=== PATIENT | female | born 1975 | race Caucasian/White ===

== ENCOUNTER 2018-04-27 14:44 | Inpatient (IN) | payer MEDICAID, OTHER | END 2018-05-01 10:40 | disposition home or self-care (01) | LOC: ER 14:44 → ED HOLD 19:38 → SUR 3N 22:53 | DX: A41.9 Sepsis, unspecified organism (principal); K57.20 Diverticulitis of large intestine with perforation and abscess without bleeding; E87.6 Hypokalemia; Z72.0 Tobacco use ==

== ENCOUNTER 2018-07-01 08:19 | Day surgery (SDC) | payer MEDICAID, OTHER ==
[~2018-07-01] VITALS: Ht 167.6 cm; Wt 71.4 kg
[~2018-07-01 08:19] MED LIST: NO HOME MEDS
[2018-07-01 08:30] VITALS: BP 112/84
[2018-07-01] MEDS ORDERED: LIDOcaine Viscous 15ml cup ONE (08:41)
[2018-07-01] MEDS ORDERED: MIDAZolam 5mg/5ml vial ONE (08:41)
[2018-07-01] MEDS ORDERED: fentaNYL/PF 50MCG/1 ML 2ML syringe ONE (08:41)
[2018-07-01 10:56] VITALS: BP 110/65
[2018-07-01 11:06] VITALS: BP 106/73
[2018-07-01 11:16] VITALS: BP 91/56
[2018-07-01 11:26] VITALS: BP 98/52
== END 2018-07-01 11:37 | disposition home or self-care (01) ==
LOC: GI LAB 08:19
PROVIDERS: ATTEND Internal Medicine Gastroenterology
DX: K57.30 Diverticulosis of large intestine without perforation or abscess without bleeding (principal)
CPT/HCPCS: 45378; 99152; 99153; J2250; J3010; J7030; A4620

== ENCOUNTER 2018-12-22 04:27 | Emergency (ER) | payer MEDICAID ==
[~2018-12-22] VITALS: Ht 165.1 cm; Wt 71.8 kg
[2018-12-22 05:05] LABS: CLARITY,URINE CLEAR (Clear); COLOR,URINE YELLOW (Yellow); GLUCOSE, URINE NEGATIVE (Neg); KETONES,URINE NEGATIVE (Neg); LEUKOCYTE ESTERASE ,URINE NEGATIVE (Neg); NITRITES, URINE NEGATIVE (Neg); OCCULT BLOOD,URINE LARGE (Neg); PROTEIN,URINE NEGATIVE (Neg); UROBILINOGEN,URINE 0.2 E.U/dL (0.2-1.0)
[2018-12-22 05:09] LABS: UA COLLECTION TYPE CLN CATCH MIDSTREAM
[2018-12-22 05:10] LABS: BACTERIA,URINE FEW /HPF (Neg); SQUAMOUS EPITHELIAL CELL,UR MODERATE /LPF (FEW); WBC,URINE 0-4 /HPF (0-4)
[2018-12-22 05:32] LABS: BASOPHILS # (AUTO) 0.1 X10'3 (0-0.2); BASOPHILS % (AUTO) 0.7 % (0-1); EOSINOPHILS # (AUTO) 0.1 X10'3 (0-0.9); EOSINOPHILS % (AUTO) 0.7 % (0-6); HEMATOCRIT 41.5 % (35.0-45.0); HEMOGLOBIN 14.2 g/dl (12.0-16.0); LYMPHOCYTES # (AUTO) 1.6 X10'3 (1.1-4.8); LYMPHOCYTES % (AUTO) 10.7 % (21-51); MEAN CORPUSCULAR HEMOGLOBIN 32.1 PG (27.0-31.0); MEAN CORPUSCULAR HGB CONC 34.1 g/dL (33.0-36.5); MEAN CORPUSCULAR VOLUME 94.1 FL (78-98); MEAN PLATELET VOLUME 7.4 FL (7.4-10.4); MONOCYTES # (AUTO) 0.9 X10'3 (0-0.9); MONOCYTES % (AUTO) 6.2 % (2-12); NEUTROPHILS # (AUTO) 12.2 X10'3 (1.8-7.7); NEUTROPHILS % (AUTO) 81.7 % (42-75); PLATELET COUNT 350 X10'3 (140-440); RED BLOOD COUNT 4.41 X10'6 (4.20-5.60); RED CELL DISTRIBUTION WIDTH 13.3 % (11.5-14.5)
[2018-12-22 05:34] LABS: ALANINE AMINOTRANSFERASE 30 U/L (12-78); ALBUMIN 3.4 G/DL (3.4-5.0); ALBUMIN/GLOBULIN RATIO 0.9 (1.1-1.5); ALKALINE PHOSPHATASE 74 IU/L (46-116); ANION GAP 10 (8-16); ASPARTATE AMINO TRANSFERASE 20 U/L (10-37); BILIRUBIN,TOTAL 0.7 MG/DL (0.1-1.0); BLOOD UREA NITROGEN 4 MG/DL (7-18); BUN/CREATININE RATIO 5.8 (6.6-38.0); CALCIUM 8.4 MG/DL (8.5-10.1); CHLORIDE 103 MMOL/L (99-107); CREATININE 0.69 MG/DL (0.40-0.90); GLUCOSE 107 MG/DL (70-104); LIPASE 108 U/L (73-393); POTASSIUM 3.4 MMOL/L (3.5-5.1); SODIUM 138 MMOL/L (135-145); TOTAL CARBON DIOXIDE 24.6 MMOL/L (24-32); TOTAL PROTEIN 7.3 G/DL (6.4-8.2); eGFR > 90 ML/MIN
[2018-12-22] MEDS ORDERED: ketorolac trometh. 30mg/ml inj. IV ONE (05:40)
[2018-12-22] MEDS ORDERED: ondansetron/PF 4mg/2ml inj IV ONE (06:10)
[2018-12-22] MEDS ORDERED: ciprofloxacin 250mg tablet PO ONE (06:10)
[2018-12-22] MEDS ORDERED: HYDROcodone/acetaminophen 5mg/325mg tablet PO ONE (06:10)
[2018-12-22] MEDS ORDERED: metroNIDAZOLE 500mg tablet PO ONE (06:10)
[2018-12-22] MEDS ORDERED: CIPR-230 PO (06:12)
[2018-12-22] MEDS ORDERED: METR-159 PO (06:12)
[2018-12-22] MEDS ORDERED: HYDR-3965 PO (06:13)
[2018-12-22 06:38] VITALS: BP 118/70
== END 2018-12-22 06:42 | disposition home or self-care (01) ==
LOC: ER 04:28
DX: K57.92 Diverticulitis of intestine, part unspecified, without perforation or abscess without bleeding (principal); Z98.890 Other specified postprocedural states; Z88.0 Allergy status to penicillin; Z79.899 Other long term (current) drug therapy
CPT/HCPCS: 36415; 80053; 81001; 83690; 85025; 96374; 96375; 99284; J1885; J2405; J3490

== ENCOUNTER 2019-04-04 09:06 | Emergency (ER) | payer MEDICAID ==
[~2019-04-04] VITALS: Ht 167.6 cm; Wt 68.6 kg
[2019-04-04 10:12] LABS: BASOPHILS % (AUTO) 0.1 % (0-1); EOSINOPHILS % (AUTO) 0.3 % (0-6); HEMATOCRIT 42.9 % (35.0-45.0); HEMOGLOBIN 14.7 g/dl (12.0-16.0); LYMPHOCYTES # (AUTO) 0.4 X10'3 (1.1-4.8); LYMPHOCYTES % (AUTO) 4.6 % (21-51); MEAN CORPUSCULAR HEMOGLOBIN 31.5 PG (27.0-31.0); MEAN CORPUSCULAR HGB CONC 34.3 g/dL (33.0-36.5); MEAN CORPUSCULAR VOLUME 91.8 FL (78-98); MEAN PLATELET VOLUME 7.1 FL (7.4-10.4); MONOCYTES # (AUTO) 0.1 X10'3 (0-0.9); MONOCYTES % (AUTO) 0.8 % (2-12); NEUTROPHILS # (AUTO) 7.3 X10'3 (1.8-7.7); NEUTROPHILS % (AUTO) 94.2 % (42-75); PLATELET COUNT 300 X10'3 (140-440); RED BLOOD COUNT 4.67 X10'6 (4.20-5.60); RED CELL DISTRIBUTION WIDTH 13.5 % (11.5-14.5); WHITE BLOOD COUNT 7.8 X10'3 (4.5-11.0)
[2019-04-04] MEDS ORDERED: normal saline 1000ML IV soln IVB ONE (10:15)
[2019-04-04] MEDS ORDERED: ketorolac tromethamine 15mg/ml inj. IV ONE (10:15)
[2019-04-04 10:25] LABS: ALANINE AMINOTRANSFERASE 79 U/L (12-78); ALBUMIN 3.4 G/DL (3.4-5.0); ALBUMIN/GLOBULIN RATIO 0.9 (1.1-1.5); ALKALINE PHOSPHATASE 110 IU/L (46-116); ANION GAP 11 (8-16); ASPARTATE AMINO TRANSFERASE 56 U/L (10-37); BILIRUBIN,TOTAL 0.4 MG/DL (0.1-1.0); BLOOD UREA NITROGEN 8 MG/DL (7-18); BUN/CREATININE RATIO 9.8 (6.6-38.0); CALCIUM 8.6 MG/DL (8.5-10.1); CHLORIDE 100 MMOL/L (99-107); CREATININE 0.82 MG/DL (0.40-0.90); GLUCOSE 104 MG/DL (70-104); LIPASE 101 U/L (73-393); POTASSIUM 3.5 MMOL/L (3.5-5.1); SODIUM 137 MMOL/L (135-145); TOTAL CARBON DIOXIDE 26.2 MMOL/L (24-32); TOTAL PROTEIN 7.1 G/DL (6.4-8.2); eGFR 76 ML/MIN
[2019-04-04 10:37] LABS: CLARITY,URINE CLEAR (Clear); COLOR,URINE STRAW (Yellow); GLUCOSE, URINE NEGATIVE (Neg); KETONES,URINE NEGATIVE (Neg); LEUKOCYTE ESTERASE ,URINE NEGATIVE (Neg); NITRITES, URINE NEGATIVE (Neg); OCCULT BLOOD,URINE SMALL (Neg); PH,URINE 5.5 (4.8-8.0); PROTEIN,URINE NEGATIVE (Neg); UROBILINOGEN,URINE 0.2 E.U/dL (0.2-1.0)
[2019-04-04 10:38] LABS: UA COLLECTION TYPE CLN CATCH MIDSTREAM; URINE HCG NEGATIVE (NEG)
[2019-04-04 10:42] LABS: BACTERIA,URINE FEW /HPF (Neg); MUCUS STRANDS NONE SEEN /LPF (Neg); RBC,URINE 0-2 /HPF (0-2); SQUAMOUS EPITHELIAL CELL,UR FEW /LPF (FEW); WBC,URINE 0-4 /HPF (0-4)
--- NOTE | 2019-04-04 11:00 | NUR ---
NERY Ramirez at bedside speaking with patient.
[2019-04-04] MEDS ORDERED: pantoprazole 40mg Tablet.DR PO STA (11:06)
[2019-04-04] MEDS ORDERED: mag hydrox/Alum hydrox/simeth 30ml oral suspension PO ONE (11:10)
[2019-04-04] MEDS ORDERED: dicyclomine 10 MG capsule PO ONE (11:10)
[2019-04-04] MEDS ORDERED: MAG355OR18 PO (11:57)
[2019-04-04] MEDS ORDERED: DICY10CA88 PO (11:57)
[2019-04-04] MEDS ORDERED: PANT20TA3 PO (11:57)
[2019-04-04 12:08] VITALS: BP 114/65
[2019-04-05] MEDS ORDERED: DICY10CA88 PO (11:44)
[2019-04-05] MEDS ORDERED: MAG355OR18 PO (11:44)
[2019-04-05] MEDS ORDERED: PANT40TA4 PO (11:45)
== END 2019-04-04 12:10 | disposition home or self-care (01) ==
LOC: ER 09:06
DX: R10.13 Epigastric pain (principal); R11.2 Nausea with vomiting, unspecified; R10.84 Generalized abdominal pain; F17.299 Nicotine dependence, other tobacco product, with unspecified nicotine-induced disorders; Z98.890 Other specified postprocedural states; Z88.1 Allergy status to other antibiotic agents; Z79.899 Other long term (current) drug therapy
CPT/HCPCS: 36415; 80053; 81001; 81025; 83690; 85025; 96361; 96374; 99283; 99406; J1885; J7030

== ENCOUNTER 2019-04-05 06:41 | Inpatient (IN) | payer MEDICAID ==
[~2019-04-05] VITALS: Ht 167.6 cm; Wt 80.0 kg
[~2019-04-05 06:41] MED LIST changes: +DICY10CA88 PO; +MAG355OR18 PO; +PANT20TA3 PO
[2019-04-05] MEDS ORDERED: normal saline 1000ml 1,000 ML IV ONE ×2 (07:21→08:38)
[2019-04-05] MEDS ORDERED: normal saline 1000ML IV soln IVB ONE (07:25)
[2019-04-05] MEDS ORDERED: morphine 4 MG/ML inj SYRINge IV ONE (07:30)
[2019-04-05] MEDS ORDERED: metoclopramide 5 mg/ml inj IV ONE (07:35)
[2019-04-05 07:42] LABS: BASOPHILS % (AUTO) 0.2 % (0-1); EOSINOPHILS # (AUTO) 0.1 X10'3 (0-0.9); EOSINOPHILS % (AUTO) 0.5 % (0-6); HEMATOCRIT 40.1 % (35.0-45.0); HEMOGLOBIN 13.6 g/dl (12.0-16.0); LYMPHOCYTES # (AUTO) 0.5 X10'3 (1.1-4.8); LYMPHOCYTES % (AUTO) 4.6 % (21-51); MEAN CORPUSCULAR HEMOGLOBIN 30.9 PG (27.0-31.0); MEAN PLATELET VOLUME 7.1 FL (7.4-10.4); MONOCYTES # (AUTO) 0.2 X10'3 (0-0.9); NEUTROPHILS # (AUTO) 10.7 X10'3 (1.8-7.7); NEUTROPHILS % (AUTO) 92.7 % (42-75); PLATELET COUNT 290 X10'3 (140-440); RED CELL DISTRIBUTION WIDTH 13.7 % (11.5-14.5); WHITE BLOOD COUNT 11.6 X10'3 (4.5-11.0)
[2019-04-05] MEDS ORDERED: iohexol 300mg/ml 100ml inj. ONE (07:49)
[2019-04-05] MEDS ORDERED: metroNIDAZOLE-Flagyl 500mg/NS 100 ML IV STA (08:36)
[2019-04-05] MEDS ORDERED: levoFLOXACIN-Levaquin 500mg/D5 100 ML IV ONE (08:40)
[2019-04-05] MEDS ORDERED: HYDROcodone/acetaminophen 5mg/325mg tablet PO PRN (09:45)
[2019-04-05] MEDS ORDERED: mag hydrox/Alum hydrox/simeth 30ml oral suspension PO PRN (09:45)
[2019-04-05] MEDS ORDERED: ondansetron/PF 4mg/2ml inj IV PRN (09:45)
[2019-04-05] MEDS ORDERED: morphine 2 MG/ML inj. syringe IV PRN ×2 (09:45)
[2019-04-05] MEDS ORDERED: acetaminophen 325mg tablet PO PRN ×2 (09:45)
[2019-04-05] MEDS: normal saline 1000ml 1,000 ML IV SCH ×2 (09:45→19:45)
[2019-04-05] MEDS ORDERED: magnesium hydroxide 30ml (MOM) UD suspension PO PRN (09:45)
[2019-04-05] MEDS ORDERED: MAG355OR18 PO (11:44)
[2019-04-05] MEDS ORDERED: DICY10CA88 PO (11:44)
[2019-04-05] MEDS ORDERED: PANT40TA4 PO (11:45)
[2019-04-05] MEDS: HYDROcodone/acetaminophen 10/325mg tab PO PRN ×3 (11:53→19:20)
[2019-04-05 15:18] VITALS: BP 111/63
[2019-04-05] MEDS: metroNIDAZOLE-Flagyl 500mg/NS 100 ML IV SCH (15:45)
[2019-04-05 16:14] LABS: ALBUMIN 2.7 G/DL (3.4-5.0); ANION GAP 8 (8-16); BLOOD UREA NITROGEN 3 MG/DL (7-18); CALCIUM 8.1 MG/DL (8.5-10.1); CHLORIDE 107 MMOL/L (99-107); GLUCOSE 101 MG/DL (70-104); POTASSIUM 3.5 MMOL/L (3.5-5.1); SODIUM 141 MMOL/L (135-145); TOTAL CARBON DIOXIDE 25.7 MMOL/L (24-32); eGFR > 90 ML/MIN
--- NOTE | 2019-04-05 18:30 | NUR ---
Patient in room [facility]. I have received report from VIDAL and had the opportunity to ask questions and assume patient care.
--- NOTE | 2019-04-05 18:30 | NUR ---
ASSUMED CARE OF PT WITH MACHELLE Jackson
--- NOTE | 2019-04-05 18:30 | NUR ---
Patient in room [facility]. I have received report from Madelin CARTY and had the opportunity to ask questions and assume patient care.
[2019-04-05 19:00] VITALS: BP 109/67
[2019-04-05] MEDS: nicotine 21mg patch - 24 hr TD SCH (19:19)
[2019-04-05] MEDS: lactobacillus rhamnosus 10,000 MMU CELLS/CAPSULE PO SCH (21:11)
[2019-04-05 23:00] VITALS: BP 102/68
[2019-04-06] MEDS: metroNIDAZOLE-Flagyl 500mg/NS 100 ML IV SCH ×2 (00:05→07:27)
[2019-04-06] MEDS: normal saline 1000ml 1,000 ML IV SCH (03:20)
[2019-04-06] MEDS: HYDROcodone/acetaminophen 10/325mg tab PO PRN ×2 (03:21→07:29)
[2019-04-06 06:12] LABS: ALBUMIN 2.5 G/DL (3.4-5.0); ANION GAP 9 (8-16); BASOPHILS % (AUTO) 0.1 % (0-1); BLOOD UREA NITROGEN 3 MG/DL (7-18); BUN/CREATININE RATIO 5.6 (6.6-38.0); CHLORIDE 108 MMOL/L (99-107); CREATININE 0.54 MG/DL (0.40-0.90); EOSINOPHILS # (AUTO) 0.3 X10'3 (0-0.9); EOSINOPHILS % (AUTO) 2.3 % (0-6); GLUCOSE 102 MG/DL (70-104); HEMOGLOBIN 11.9 g/dl (12.0-16.0); LYMPHOCYTES # (AUTO) 1.3 X10'3 (1.1-4.8); LYMPHOCYTES % (AUTO) 10.6 % (21-51); MEAN CORPUSCULAR HEMOGLOBIN 31.2 PG (27.0-31.0); MEAN CORPUSCULAR HGB CONC 34.1 g/dL (33.0-36.5); MEAN CORPUSCULAR VOLUME 91.4 FL (78-98); MEAN PLATELET VOLUME 7.4 FL (7.4-10.4); MONOCYTES # (AUTO) 1.2 X10'3 (0-0.9); MONOCYTES % (AUTO) 9.7 % (2-12); NEUTROPHILS # (AUTO) 9.3 X10'3 (1.8-7.7); NEUTROPHILS % (AUTO) 77.3 % (42-75); PLATELET COUNT 265 X10'3 (140-440); POTASSIUM 3.7 MMOL/L (3.5-5.1); RED BLOOD COUNT 3.82 X10'6 (4.20-5.60); RED CELL DISTRIBUTION WIDTH 13.4 % (11.5-14.5); SODIUM 141 MMOL/L (135-145); TOTAL CARBON DIOXIDE 23.8 MMOL/L (24-32); eGFR > 90 ML/MIN
--- NOTE | 2019-04-06 06:15 | NUR ---
Patient in room [facility]. I have received report from Irma RN & Peg RN and had the opportunity to ask questions and assume patient care.
--- NOTE | 2019-04-06 06:25 | NUR ---
Problems reprioritized. Patient report given, questions answered & plan of care reviewed with Olivia RN.
[2019-04-06 06:30] VITALS: BP 105/74
[2019-04-06] MEDS: lactobacillus rhamnosus 10,000 MMU CELLS/CAPSULE PO SCH (07:27)
[2019-04-06] MEDS: nicotine 21mg patch - 24 hr TD SCH (07:27)
[2019-04-06] MEDS: levoFLOXACIN-Levaquin 750MG/D5 150 ML IV SCH ×2 (09:29→10:56)
[2019-04-06 11:00] VITALS: BP 117/69
[2019-04-06] MEDS ORDERED: HYDR-4383 PO (11:05)
[2019-04-06] MEDS ORDERED: METR-159 PO (11:12)
[2019-04-06] MEDS ORDERED: LEVO500T2 PO (13:40)
--- NOTE | 2019-04-06 13:55 | NUR ---
DC inst provided to pt. IV DC'd, tip intact. All belongings sent w/pt. Pt ambulated to front lobby.
== END 2019-04-06 13:55 | disposition home or self-care (01) | DRG 244 ==
LOC: ER 06:42 → ED HOLD 09:45 → SUR 3N 13:24
PROVIDERS: ADMIT Internal Medicine; ATTEND Internal Medicine
DX: K57.32 Diverticulitis of large intestine without perforation or abscess without bleeding (principal); E11.9 Type 2 diabetes mellitus without complications; F17.210 Nicotine dependence, cigarettes, uncomplicated; F10.20 Alcohol dependence, uncomplicated; Z88.0 Allergy status to penicillin; Z79.899 Other long term (current) drug therapy
CPT/HCPCS: 36415; 74177; 80048; 85025; 96374; 96375; 99285; G0378; J1956; J2270; J2405; J2765; J3490; J7030; Q9967

== ENCOUNTER 2019-05-19 08:18 | Inpatient (IN) | payer MEDICAID ==
[2019-05-15 14:37] LABS: BASOPHILS # (AUTO) 0.1 X10'3 (0-0.2); BASOPHILS % (AUTO) 0.6 % (0-1); EOSINOPHILS # (AUTO) 0.1 X10'3 (0-0.9); EOSINOPHILS % (AUTO) 0.8 % (0-6); LYMPHOCYTES # (AUTO) 3.2 X10'3 (1.1-4.8); LYMPHOCYTES % (AUTO) 22.6 % (21-51); MEAN CORPUSCULAR HEMOGLOBIN 31.1 PG (27.0-31.0); MEAN CORPUSCULAR HGB CONC 34.6 g/dL (33.0-36.5); MEAN PLATELET VOLUME 7.5 FL (7.4-10.4); MONOCYTES # (AUTO) 0.8 X10'3 (0-0.9); MONOCYTES % (AUTO) 5.9 % (2-12); NEUTROPHILS # (AUTO) 9.8 X10'3 (1.8-7.7); NEUTROPHILS % (AUTO) 70.1 % (42-75); PRE OP HEMATOCRIT 42.1 % (35.0-45.0); PRE OP HEMOGLOBIN 14.6 g/dL (12.0-16.0); PRE OP PLATELET COUNT 421 X10'3 (140-440); RED BLOOD COUNT 4.68 X10'6 (4.20-5.60); RED CELL DISTRIBUTION WIDTH 13.9 % (11.5-14.5)
[2019-05-15 14:51] LABS: ALBUMIN/GLOBULIN RATIO 1.2 (1.1-1.5); ALKALINE PHOSPHATASE 59 IU/L (46-116); BLOOD UREA NITROGEN 5 MG/DL (7-18); BUN/CREATININE RATIO 8.1 (6.6-38.0); CALCIUM 8.9 MG/DL (8.5-10.1); CHLORIDE 105 MMOL/L (99-107); CREATININE 0.62 MG/DL (0.40-0.90); PRE OP ALT 30 U/L (30-65); PRE OP ANION GAP 8 (8-16); PRE OP AST 25 U/L (10-37); PRE OP BILIRUB, TOTAL 0.5 MG/DL (0.0-1.0); PRE OP POTASSIUM 3.9 MMOL/L (3.4-5.1); PRE OP SODIUM 139 MMOL/L (135-145); TOTAL CARBON DIOXIDE 26.3 MMOL/L (24-32); TOTAL PROTEIN 7.3 G/DL (6.4-8.2); eGFR > 90 ML/MIN
[2019-05-15 14:52] LABS: PRE OP GLUCOSE 89 MG/DL (70-104)
[2019-05-19] VITALS (15 sets, daily range): BP systolic 83–146; BP diastolic 44–88
[~2019-05-19] VITALS: Ht 165.1 cm; Wt 63.5 kg
[~2019-05-19 08:18] MED LIST changes: +ALBU8.5H8 INH; +BUPIVACAINE liposomal/PF 13.3 MG/ML vial IM ONE; +BUPIVAcaine/PF 2.5 mg/ml (0.25%) 30ml vial ONE; +BUPIVAcaine/PF 2.5mg/ml (0.25%) 10ml vial ONE; -DICY10CA88 PO; +GENTAMICIN IV ONE; +LIDOcaine 1% 30ml preserv. free vial ONE; -MAG355OR18 PO; -NO HOME MEDS; +NORMAL SALINE IV ONE; -PANT20TA3 PO; +albuterol 2.5 MG/3 ML nebule NEB ONE; +clindamycin-Cleocin 900mg/D5W 50 ML IV ONE; +famotidine 20mg tablet PO ONE; +meperidine/PF 25mg/ml syringe IV PRN; +morphine 2 MG/ML inj. syringe IV PRN; +morphine 4 MG/ML inj SYRINge IV PRN; +ondansetron/PF 4mg/2ml inj IV PRN; +proCHLORperazine 10 MG/2 ml inj IV PRN; +ringers solution, lacted 1,000 ML IV SCH
[2019-05-19] MEDS ORDERED: diazepam 5mg tablet PO ONE (13:55)
[2019-05-19 16:41] LABS: BASOPHILS # (AUTO) 0.1 X10'3 (0-0.2); BASOPHILS % (AUTO) 0.9 % (0-1); EOSINOPHILS # (AUTO) 0.1 X10'3 (0-0.9); EOSINOPHILS % (AUTO) 1.5 % (0-6); MEAN CORPUSCULAR HGB CONC 34.3 g/dL (33.0-36.5); MEAN CORPUSCULAR VOLUME 90.4 FL (78-98); MEAN PLATELET VOLUME 7.4 FL (7.4-10.4); MONOCYTES # (AUTO) 0.8 X10'3 (0-0.9); NEUTROPHILS # (AUTO) 5.9 X10'3 (1.8-7.7); NEUTROPHILS % (AUTO) 59.6 % (42-75); PRE OP HEMATOCRIT 38.1 % (35.0-45.0); PRE OP HEMOGLOBIN 13.1 g/dL (12.0-16.0); PRE OP PLATELET COUNT 374 X10'3 (140-440); RED BLOOD COUNT 4.21 X10'6 (4.20-5.60); RED CELL DISTRIBUTION WIDTH 14.2 % (11.5-14.5)
[2019-05-19] MEDS ORDERED: midazolam 2 mg/2 ml injection ONE (17:16)
[2019-05-19] MEDS ORDERED: fentaNYL /PF 50mcg/ml 5ml ampule ONE (17:16)
[2019-05-19] MEDS ORDERED: dexamethasone sod phosphate 10mg/ml inj ONE (17:40)
[2019-05-19] MEDS ORDERED: sevoflurane 250ml liquid IH ONE (17:40)
[2019-05-19] MEDS ORDERED: ondansetron/PF 4mg/2ml inj ONE (17:40)
[2019-05-19] MEDS ORDERED: rocuronium 10mg/ml inj IV ONE (17:44)
[2019-05-19] MEDS ORDERED: LIDOcaine 2% (20mg/ml) 5ml vial ONE (17:56)
[2019-05-19] MEDS ORDERED: propofol inj 20 ML IV ONE (17:56)
[2019-05-19] MEDS ORDERED: BUPIVACAINE liposomal/PF 13.3 MG/ML vial IM ONE (19:19)
[2019-05-19] MEDS ORDERED: BUPIVAcaine/PF 2.5mg/ml (0.25%) 10ml vial ONE (19:19)
[2019-05-19] MEDS ORDERED: morphine 10mg/ml inj. ONE (19:43)
[2019-05-19] MEDS ORDERED: ketorolac trometh. 30mg/ml inj. ONE (20:07)
[2019-05-19] MEDS ORDERED: ondansetron/PF 4mg/2ml inj IV PRN (20:25)
[2019-05-19] MEDS ORDERED: Potassium Cl inj 20 MEQ in ringers solution, lacted 1,000 ML IV SCH (20:25)
[2019-05-19] MEDS ORDERED: naloxone 0.4 mg/ml inj IV PRN (20:25)
[2019-05-19] MEDS ORDERED: acetaminophen 1,000mg/100ml IV 100 ML IV ONE (20:25)
[2019-05-19] MEDS ORDERED: CADD PCA waste documentation MC PRN (20:25)
--- NOTE | 2019-05-19 20:25 | NUR ---
Received from OR via SURGICAL BED, accompanied by Anesthesiologist DR GAGNON and report given by Anesthesiolgist. PT AROUSES EASILY PLACED ON O2 AND MONITOR, S/P ROBOTIC ASSISTED ATTEMPT THEN OPEN COLON RESECTION, GENERAL ANESTH, PT HAS 4 LARGE LAP SITE BAND AIDS CDI, AND 1 MIDLINE ISLAND DRESSING CDI, SLAUGHTER TAB DRAINING CLEAR YELLOW, ABD SOFT, DENIES ANY PAIN OR NAUSEA AT THIS TIME, WILL CONT TO ASSESS.
[2019-05-19] MEDS ORDERED: albuterol 2.5 MG/3 ML nebule NEB PRN (20:50)
[2019-05-19] MEDS: HYDROmorphone/NS 1 mg/ml CADD 50 ML IV SCH ×2 (21:00→23:00)
--- NOTE | 2019-05-19 21:25 | NUR ---
Report called to receiving nurse. Transferred via SURGICAL BED TO ROOM 360B Belongings . Special Issues communicated to receiving nurse. PT TOLERATING ICE CHIPS
--- NOTE | 2019-05-19 21:30 | NUR ---
Patient arrived to floor via gurney from recovery. Patient alert and in no pain at this time. Post op vs iniated.
[2019-05-20] VITALS (7 sets, daily range): BP systolic 87–107; BP diastolic 47–62
[2019-05-20] MEDS: HYDROmorphone/NS 1 mg/ml CADD 50 ML IV SCH ×13 (00:09→23:00)
[2019-05-20] MEDS: ciprofloxacin lact 400MG/200ML 200 ML IV SCH ×3 (00:28→21:49)
[2019-05-20] MEDS: ketorolac trometh. 30mg/ml inj. IV SCH ×3 (01:09→16:00)
[2019-05-20] MEDS ORDERED: acetaminophen 1,000mg/100ml IV 100 ML IV ONE (01:15)
[2019-05-20 06:12] LABS: BASOPHILS % (AUTO) 0.2 % (0-1); EOSINOPHILS % (AUTO) 0.2 % (0-6); HEMATOCRIT 34.6 % (35.0-45.0); HEMOGLOBIN 11.8 g/dl (12.0-16.0); LYMPHOCYTES # (AUTO) 1.7 X10'3 (1.1-4.8); LYMPHOCYTES % (AUTO) 9.8 % (21-51); MEAN CORPUSCULAR HEMOGLOBIN 31.1 PG (27.0-31.0); MEAN CORPUSCULAR HGB CONC 34.1 g/dL (33.0-36.5); MEAN CORPUSCULAR VOLUME 91.2 FL (78-98); MEAN PLATELET VOLUME 7.5 FL (7.4-10.4); MONOCYTES # (AUTO) 0.8 X10'3 (0-0.9); MONOCYTES % (AUTO) 4.3 % (2-12); NEUTROPHILS # (AUTO) 14.9 X10'3 (1.8-7.7); NEUTROPHILS % (AUTO) 85.5 % (42-75); PLATELET COUNT 335 X10'3 (140-440); RED BLOOD COUNT 3.79 X10'6 (4.20-5.60); WHITE BLOOD COUNT 17.5 X10'3 (4.5-11.0)
[2019-05-20 06:28] LABS: ALBUMIN 2.7 G/DL (3.4-5.0); ANION GAP 9 (8-16); BLOOD UREA NITROGEN 4 MG/DL (7-18); BUN/CREATININE RATIO 5.5 (6.6-38.0); CALCIUM 7.8 MG/DL (8.5-10.1); CHLORIDE 109 MMOL/L (99-107); CREATININE 0.73 MG/DL (0.40-0.90); GLUCOSE 86 MG/DL (70-104); POTASSIUM 3.5 MMOL/L (3.5-5.1); SODIUM 142 MMOL/L (135-145); eGFR 87 ML/MIN
--- NOTE | 2019-05-20 06:51 | NUR ---
Called Dr Desai to report low BP's which appear to be lower this am at 85 47, hr 74. New order to start LR at 150ml/hr.
[2019-05-20] MEDS: ringers solution, lacted 1,000 ML IV SCH ×2 (07:06→16:32)
--- NOTE | 2019-05-20 07:06 | NUR ---
Patient in room [facility]. I have received report from Elke CARTY and had the opportunity to ask questions and assume patient care.
[2019-05-20] MEDS: metroNIDAZOLE-Flagyl 500mg/NS 100 ML IV SCH ×2 (08:21→21:49)
[2019-05-20] MEDS: enoxaparin 40mg/0.4ml syringe SQ SCH (08:21)
--- NOTE | 2019-05-20 17:50 | NUR ---
Student documentation: I reviewed all interventions, assessments performed and documented by Yina HINKLE.
--- NOTE | 2019-05-20 18:59 | NUR ---
Patient in room [facility]. I have received report from MACHELLE CARABALLO and had the opportunity to ask questions and assume patient care. Addendum: 05/20/19 at 1859 by Yolanda Huitron RN Amended: Links added.
--- NOTE | 2019-05-20 19:41 | NUR ---
Problems reprioritized. Patient report given, questions answered & plan of care reviewed with Mikayla Walsh
[2019-05-21] VITALS: BP 93/49
[2019-05-21] MEDS: HYDROmorphone/NS 1 mg/ml CADD 50 ML IV SCH ×9 (01:00→17:00)
[2019-05-21] MEDS: ketorolac trometh. 30mg/ml inj. IV SCH ×3 (01:43→18:49)
[2019-05-21] MEDS: ringers solution, lacted 1,000 ML IV SCH (01:43)
[2019-05-21 05:05] LABS: BASOPHILS % (AUTO) 0.2 % (0-1); EOSINOPHILS # (AUTO) 0.1 X10'3 (0-0.9); HEMATOCRIT 32.4 % (35.0-45.0); HEMOGLOBIN 11.1 g/dl (12.0-16.0); LYMPHOCYTES # (AUTO) 1.7 X10'3 (1.1-4.8); LYMPHOCYTES % (AUTO) 14.3 % (21-51); MEAN CORPUSCULAR HEMOGLOBIN 31.4 PG (27.0-31.0); MEAN CORPUSCULAR HGB CONC 34.4 g/dL (33.0-36.5); MEAN CORPUSCULAR VOLUME 91.1 FL (78-98); MEAN PLATELET VOLUME 7.4 FL (7.4-10.4); MONOCYTES # (AUTO) 0.8 X10'3 (0-0.9); MONOCYTES % (AUTO) 6.6 % (2-12); NEUTROPHILS # (AUTO) 9.2 X10'3 (1.8-7.7); NEUTROPHILS % (AUTO) 77.9 % (42-75); PLATELET COUNT 298 X10'3 (140-440); RED BLOOD COUNT 3.55 X10'6 (4.20-5.60); RED CELL DISTRIBUTION WIDTH 14.2 % (11.5-14.5); WHITE BLOOD COUNT 11.8 X10'3 (4.5-11.0)
[2019-05-21 05:16] LABS: ALBUMIN 2.5 G/DL (3.4-5.0); ANION GAP 6 (8-16); BLOOD UREA NITROGEN 1 MG/DL (7-18); BUN/CREATININE RATIO 1.6 (6.6-38.0); CALCIUM 8.3 MG/DL (8.5-10.1); CHLORIDE 108 MMOL/L (99-107); CREATININE 0.61 MG/DL (0.40-0.90); GLUCOSE 86 MG/DL (70-104); POTASSIUM 3.1 MMOL/L (3.5-5.1); SODIUM 143 MMOL/L (135-145); TOTAL CARBON DIOXIDE 28.7 MMOL/L (24-32); eGFR > 90 ML/MIN
--- NOTE | 2019-05-21 07:15 | NUR ---
Patient in room [facility]. I have received report from and had the opportunity to ask questions and assume patient care. Addendum: 05/21/19 at 1949 by Nicole Sheth RN From Mikayla Walsh
[2019-05-21] MEDS ORDERED: magnesium hydroxide 30ml (MOM) UD suspension PO ONE (07:25)
--- NOTE | 2019-05-21 07:35 | NUR ---
Problems reprioritized. Patient report given, questions answered & plan of care reviewed with nadia ladd.
[2019-05-21 08:00] VITALS: BP 107/73
[2019-05-21] MEDS: enoxaparin 40mg/0.4ml syringe SQ SCH (08:00)
[2019-05-21] MEDS: metroNIDAZOLE-Flagyl 500mg/NS 100 ML IV SCH ×2 (08:24→20:39)
[2019-05-21] MEDS: ciprofloxacin lact 400MG/200ML 200 ML IV SCH ×3 (10:33→20:39)
[2019-05-21 11:00] VITALS: BP 112/71
[2019-05-21] MEDS ORDERED: oxyCODONE/APAP 5-325mg tablet PO PRN (17:25)
[2019-05-21 18:00] VITALS: BP 119/70
--- NOTE | 2019-05-21 18:30 | NUR ---
Problems reprioritized. Patient report given, questions answered & plan of care reviewed with corrina Walsh
--- NOTE | 2019-05-21 19:31 | NUR ---
Patient in room [facility]. I have received report from MACHELLE CARABALLO and had the opportunity to ask questions and assume patient care. Addendum: 05/21/19 at 1931 by Yolanda Huitron RN Amended: Links added.
[2019-05-21] MEDS ORDERED: lactobacillus rhamnosus 10,000 MMU CELLS/CAPSULE PO SCH (20:00)
[2019-05-21] MEDS: oxyCODONE/APAP 5-325mg tablet PO PRN (23:45)
[2019-05-22] VITALS: BP 96/62
[2019-05-22 05:05] LABS: BASOPHILS # (AUTO) 0.1 X10'3 (0-0.2); BASOPHILS % (AUTO) 0.6 % (0-1); EOSINOPHILS # (AUTO) 0.3 X10'3 (0-0.9); EOSINOPHILS % (AUTO) 3.3 % (0-6); HEMATOCRIT 31.8 % (35.0-45.0); HEMOGLOBIN 11.1 g/dl (12.0-16.0); LYMPHOCYTES % (AUTO) 24.7 % (21-51); MEAN CORPUSCULAR HEMOGLOBIN 31.7 PG (27.0-31.0); MEAN CORPUSCULAR VOLUME 90.7 FL (78-98); MEAN PLATELET VOLUME 7.8 FL (7.4-10.4); MONOCYTES # (AUTO) 0.6 X10'3 (0-0.9); MONOCYTES % (AUTO) 8.1 % (2-12); NEUTROPHILS # (AUTO) 5.1 X10'3 (1.8-7.7); NEUTROPHILS % (AUTO) 63.3 % (42-75); PLATELET COUNT 304 X10'3 (140-440); RED CELL DISTRIBUTION WIDTH 14.1 % (11.5-14.5)
[2019-05-22 05:20] LABS: ALBUMIN 2.4 G/DL (3.4-5.0); ANION GAP 6 (8-16); BLOOD UREA NITROGEN 1 MG/DL (7-18); BUN/CREATININE RATIO 1.5 (6.6-38.0); CALCIUM 8.4 MG/DL (8.5-10.1); CHLORIDE 108 MMOL/L (99-107); CREATININE 0.65 MG/DL (0.40-0.90); GLUCOSE 91 MG/DL (70-104); POTASSIUM 3.3 MMOL/L (3.5-5.1); SODIUM 143 MMOL/L (135-145); TOTAL CARBON DIOXIDE 29.1 MMOL/L (24-32); eGFR > 90 ML/MIN
[2019-05-22] MEDS: ketorolac trometh. 30mg/ml inj. IV SCH ×2 (05:37→08:00)
--- NOTE | 2019-05-22 06:39 | NUR ---
Problems reprioritized. Patient report given, questions answered & plan of care reviewed with MACHELLE CARABALLO .
[2019-05-22 08:00] VITALS: BP 114/71
[2019-05-22] MEDS: enoxaparin 40mg/0.4ml syringe SQ SCH (08:00)
[2019-05-22] MEDS: metroNIDAZOLE-Flagyl 500mg/NS 100 ML IV SCH (08:20)
[2019-05-22] MEDS ORDERED: magnesium hydroxide 30ml (MOM) UD suspension PO ONE (09:05)
[2019-05-22] MEDS ORDERED: PER5325T PO (11:06)
[2019-05-22 11:35] VITALS: BP 114/65
--- NOTE | 2019-05-22 11:35 | NUR ---
Pt DC to home with . Pt A & O, in no apparent distress or pain. Pt and verbalized understanding of all DC orders. Pt explained S&S of infection, wound care and the importance of following up with Dr Desai. Pt and are able to teach back all DC instructions. Pt's meds were called into preferred pharmacy. Pt's belongings were packed and carried out by . Pt was wheeled out to front where took her home.
[2019-05-22] MEDS: oxyCODONE/APAP 5-325mg tablet PO PRN (11:40)
[2019-05-22] MEDS ORDERED: lactobacillus rhamnosus 10,000 MMU CELLS/CAPSULE PO SCH (20:00)
== END 2019-05-22 12:05 | disposition home or self-care (01) | DRG 231 ==
LOC: PAS IN 08:18 → EDSTATUS 10:15 → SUR 3N 21:26
PROVIDERS: ADMIT Surgery; ATTEND Surgery
PROC: 0DN80ZZ Release Small Intestine, Open Approach (ICD-10-PCS; 2019-05-19)
PROC: 8E0W0CZ Robotic Assisted Procedure of Trunk Region, Open Approach (ICD-10-PCS; 2019-05-19)
PROC: 0DJD4ZZ Inspection of Lower Intestinal Tract, Percutaneous Endoscopic Approach (ICD-10-PCS; 2019-05-19)
PROC: 0DTN0ZZ Resection of Sigmoid Colon, Open Approach (ICD-10-PCS; principal; 2019-05-19 17:40)
DX: K57.40 Diverticulitis of both small and large intestine with perforation and abscess without bleeding (principal); F17.200 Nicotine dependence, unspecified, uncomplicated; K66.0 Peritoneal adhesions (postprocedural) (postinfection); Z53.31 Laparoscopic surgical procedure converted to open procedure; Z79.899 Other long term (current) drug therapy; Z90.710 Acquired absence of both cervix and uterus; Z88.1 Allergy status to other antibiotic agents; Z83.3 Family history of diabetes mellitus
CPT/HCPCS: 36415; 80048; 80053; 82948; 85025; 87081; 94760; A4215; A4618; C9290; G0378; J0131; J0744; J1100; J1170; J1580; J1650; J1885; J2001; J2250; J2270; J2405; J2704; J3010; J3490; J7120